=== PATIENT | female | born 1975 ===

== ENCOUNTER 2017-03-27 07:47 | Day surgery (SDC) | payer BC, OTHER ==
[2015-02-16 20:02] VITALS: BMI 31.2
[2017-03-27] MEDS ORDERED: Lactated Ringer's 1,000 ML IV ONE (09:00)
[2017-03-27] MEDS ORDERED: Propofol 10 mg/ml Inj (20 ML) ONE (10:43)
[2017-03-27] MEDS ORDERED: Midazolam 2 MG/2 ML VIAL ONE (10:43)
[2017-03-27] MEDS ORDERED: Rocuronium 10 mg/ml (5 ml) ONE (10:43)
[2017-03-27] MEDS ORDERED: Oxycodone/Acetaminophen 5/325 mg Tab PO PRN (12:15)
--- NOTE | 2017-03-27 12:18 | PCM.OP ---
Operative Report - Operative Report Date of Surgery/Procedure: 03/27/17 Time of Surgery/Procedure: 12:17 Surgeon: chelita wright Locomotive Engineer Diesel: none Anesthesia/Sedation: /general Pre-Operative Diagnosis: missing iud Post-Operative Diagnosis: same Indication for Surgery: missing iud Operative Findings: cervix closed
[2017-03-27 12:38] VITALS: TEMP 97.5
[2017-03-27 13:34] VITALS: BP 108/73; PULSE 70; RESP 18; O2SAT 98
--- NOTE | 2017-04-16 08:53 | OP ---
PROCEDURE DATE: 03/27/2017 PREOPERATIVE DIAGNOSIS: Missing intrauterine device. POSTOPERATIVE DIAGNOSIS: Retrieval of intrauterine device. PROCEDURE: Removal of intrauterine device. SURGEON: Kings Allen MD TYPE OF ANESTHESIA: General. ANESTHESIA ADMINISTERED BY: Dr. Jensen. ESTIMATED BLOOD LOSS: Minimal. DESCRIPTION OF PROCEDURE: With the patient in the dorsal lithotomy position under general anesthesia, the patient was prepped and draped in the usual sterile manner. A straight catheter was used to empty the bladder after which a weighted speculum was placed in the posterior vagina. Cervix was grasped anteriorly with a single-tooth tenaculum and dilated. After which straight Debra was used and the string of the IUD was found and it was removed without any complication. No bleeding. After this was done, the patient tolerated the procedure very well and was in satisfactory condition on the way to recovery room. Kings Allen MD
== END 2017-03-27 14:23 | disposition home or self-care (01) ==
LOC: H.OPSURG 07:47
PROVIDERS: ATTEND Specialist
DX: T83.32XA Displacement of intrauterine contraceptive device, initial encounter (principal)
CPT/HCPCS: 58301; 88300; 88304; J2250; J2704; J3010; J7120